=== PATIENT | female | born 1960 | race Caucasian/White ===

== ENCOUNTER 2019-09-30 09:17 | Outpatient (CLI) | payer BC, SELFPAY ==
--- NOTE | ~2019-09-30 | MM_ITS ---
EXAMINATION: MM screening [facility] BI w gen HISTORY: Screening mammogram TECHNIQUE: Craniocaudal and mediolateral oblique 3-D tomosynthesis images were obtained and synthetic 2-D images were generated. CAD analysis was submitted and interpreted. COMPARISON: 09/17/2018, 09/07/2017, 09/04/2016 BREAST PARENCHYMAL COMPOSITION: The breasts are almost entirely fatty. FINDINGS: A chronic asymmetry is present in the middle third of the upper left breast on the mediolat eral oblique view. There is no evidence of suspicious mass, calcification, or architectural distortio n to suggest malignancy in either breast. There has been no suspicious interval change. IMPRESSION: 1. No mammographic evidence of malignancy. 2. Recommend routine screening mammography in one year. BI-RADS Category 2: Benign finding(s). Reviewed, dictated and finalized at location A. [facility] OFFICIAL
== END 2019-09-30 09:18 | disposition home or self-care (01) ==
LOC: ANHIMG 09:19
PROVIDERS: PCP Family Medicine; Visit Provider Student in an Organized Health Care Education/Training Program
DX: Z12.31 Encounter for screening mammogram for malignant neoplasm of breast (principal)
CPT/HCPCS: 77063; 77067

== ENCOUNTER 2020-02-13 11:33 | Outpatient (CLI) | payer BC, SELFPAY ==
--- NOTE | ~2020-02-13 | MR_ITS ---
EXAMINATION: MR elbow RT wo con DATE: 02/13/2020 12:53 INDICATION: Nontraumatic right elbow pain TECHNIQUE: Magnetic resonance imaging (MRI) of the right elbow was performed without intravenous cont rast. Sequences included coronal, axial, and sagittal PD-weighted FS FSE and coronal, axial, and sagi ttal PD-weighted FSE. COMPARISON: None FINDINGS: Osseous/other: Normal alignment. Normal marrow signal with no marrow edema, fracture, osteochondral lesion or abnor mal marrow replacing process. Tendons: Triceps, biceps brachii and brachialis tendons are normal. Common flexor tendon wad is normal. Mild tendinopathy without discrete tear at the lateral epicondylar origin of the common extensor tendon wa d. Ligaments: Small partial-thickness tear at the lateral epicondylar insertion of the radial collateral ligament. The lateral ulnar collateral ligament annular ligament remain intact. Medial collateral ligament comp milan is normal. Cubital tunnel: Cubital tunnel is unremarkable with normal signal and caliber of the ulnar nerve. Fluid: Physiologic amount of fluid the elbow joint. IMPRESSION: 1. Small partial tear at the lateral epicondylar insertion of the radial collateral ligament. 2. Mild tendinopathy without discrete tear at the lateral epicondylar origin of the common extensor t endon wad. Reviewed, dictated and finalized at location A. IMPRESSION: 1. Small partial tear at the lateral epicondylar insertion of the radial collat eral ligament. 2. Mild tendinopathy without discrete tear at the lateral epicondylar origin of the common extensor tendon wad.
== END 2020-02-13 11:34 | disposition home or self-care (01) ==
PROVIDERS: PCP Family Medicine; Visit Provider Nurse Practitioner Family
DX: M25.521 Pain in right elbow (principal); S53.431A Radial collateral ligament sprain of right elbow, initial encounter; M65.821 Other synovitis and tenosynovitis, right upper arm
CPT/HCPCS: 73221

== ENCOUNTER 2020-10-27 09:50 | Outpatient (CLI) | payer BC, SELFPAY ==
--- NOTE | ~2020-10-27 | DEXA_ITS ---
Bone Density Report Name: Nelly Gleason Age: 60 Sex: Female Ethnicity: White Date of : 1960 Indication: postmenopausal; parental hip fracture; hysterectomy; Referring Provider: Alis Coleman Study: Bone densitometry was performed. Exam Date: October 27, 2020 Accession number: [id number] Bone Density: Region BMD T-score Z-score Classification AP Spine (L1-L4) 1.295 2.3 3.8 Normal Femoral Neck (Left) 1.037 1.7 3.1 Normal Total Hip (Left) 1.230 2.4 3.4 Normal Total Hip Bilateral Avg 1.235 2.4 3.5 Normal Femoral Neck (Right) 1.030 1.6 3.0 Normal Total Hip (Right) 1.238 2.4 3.5 Normal World Health Organization criteria for BMD impression classify patients as: Normal (T-score at or above -1.0), Osteopenia (T-score between -1.0 and -2.5), or Osteoporosis (T-score at or below -2.5). 10-year Fracture Risk: FRAX not reported because: All T-scores for Spine Total, Hip Total, Femoral Neck at or above -1.0 Previous Exams: Region Exam Age BMD T-score BMD Change BMD Change Date g/cm2 vs Baseline vs Previous AP Spine(L1-L4) 10/27/2020 60 1.295 2.3 0.029(2.3%)# 0.038(3.0%)* 09/17/2018 58 1.257 1.9 -0.009(-0.7%)# 0.013(1.0%) 07/30/2014 54 1.244 1.8 -0.022(-1.7%)# -0.107(-7.9%)# 02/09/2011 50 1.351 2.8 0.085(6.7%)* 0.052(4.0%)* 02/07/2008 47 1.299 2.3 0.033(2.6%)* 0.033(2.6%)* 07/14/2004 44 1.266 2.0 Total Hip(Left) 10/27/2020 60 1.230 2.4 0.026(2.2%)# -0.011(-0.9%) 09/17/2018 58 1.241 2.5 0.037(3.1%)# 0.037(3.0%)* 07/30/2014 54 1.204 2.1 0.000(0.0%)# -0.085(-6.6%)# 02/09/2011 50 1.289 2.8 0.085(7.1%)* 0.058(4.7%)* 02/07/2008 47 1.231 2.4 0.027(2.2%) 0.027(2.2%) 07/14/2004 44 1.204 2.1 Total Hip(Right) 10/27/2020 60 1.238 2.4 0.037(3.0%)# -0.007(-0.6%) 09/17/2018 58 1.246 2.5 0.044(3.7%)# 0.035(2.9%)* 07/30/2014 54 1.211 2.2 0.009(0.8%)# -0.033(-2.7%)# 02/09/2011 50 1.244 2.5 0.042(3.5%)* 0.004(0.3%) 02/07/2008 47 1.240 2.4 0.038(3.2%)* 0.038(3.2%)* 07/14/2004 44 1.202 2.1 *Denotes significance at 95% confidence level, LSC for AP Spine = 0.022 g/cm2, LSC for Total Hip = 0.027 g/cm2 Clinical Information Provided by Patient: Parent has had a hip fracture Has used the following medications: HRT (i.e. estrogen/hormone therapy), Vitamin D, Calcium Has the following medical conditions: Hysterectomy Patient maximum height was 65 Me
--- NOTE | ~2020-10-27 | MM_ITS ---
EXAMINATION: MM screening [facility] BI w gen HISTORY: Screening TECHNIQUE: Craniocaudal and mediolateral oblique 3-D tomosynthesis images were obtained and synthetic 2-D images were generated. CAD analysis was submitted and interpreted. COMPARISON: Comparison to multiple prior studies sequentially, with oldest reviewed study dated 08/23. BREAST PARENCHYMAL COMPOSITION: There are scattered areas of fibroglandular density. FINDINGS: There is no evidence of suspicious mass, calcification, or architectural distortion to sugg est malignancy in either breast. There has been no suspicious interval change. IMPRESSION: 1. No mammographic evidence of malignancy. 2. Recommend routine screening mammography in one year. BI-RADS Category 1: Negative Reviewed, dictated and finalized at location A.
== END 2020-10-27 09:51 | disposition home or self-care (01) ==
LOC: ANHIMG 09:52
PROVIDERS: PCP Family Medicine; Visit Provider Student in an Organized Health Care Education/Training Program
DX: N95.8 Other specified menopausal and perimenopausal disorders (principal); Z12.31 Encounter for screening mammogram for malignant neoplasm of breast
CPT/HCPCS: 77063; 77067; 77080

== ENCOUNTER 2021-11-21 08:41 | Outpatient (CLI) | payer BC, SELFPAY ==
--- NOTE | ~2021-11-21 | MM_ITS ---
EXAMINATION: MM screening [facility] BI w gen HISTORY: Screening mammogram TECHNIQUE: Craniocaudal and mediolateral oblique 3-D tomosynthesis images were obtained and synthetic 2-D images were generated. CAD analysis was submitted and interpreted. COMPARISON: 10/27/2020, , bilateral screening mammogram examinations BREAST PARENCHYMAL COMPOSITION: There are scattered areas of fibroglandular density. FINDINGS: There is no evidence of suspicious mass, calcification, or architectural distortion to sugg est malignancy in either breast. There has been no suspicious interval change. IMPRESSION: 1. No mammographic evidence of malignancy. 2. Recommend routine screening mammography in one year. BI-RADS Category 1: Negative Reviewed, dictated and finalized at location A.
== END 2021-11-21 08:42 | disposition home or self-care (01) ==
LOC: ANHIMG 08:43
PROVIDERS: PCP Family Medicine; Visit Provider Student in an Organized Health Care Education/Training Program
DX: Z12.31 Encounter for screening mammogram for malignant neoplasm of breast (principal)
CPT/HCPCS: 77063; 77067

== ENCOUNTER 2022-03-29 07:37 | Outpatient (CLI) | payer BC, SELFPAY ==
--- NOTE | ~2022-03-29 | MR_ITS ---
EXAMINATION: MR lumbar spine wo con DATE: 03/29/2022 08:22 INDICATION: Low back pain. TECHNIQUE: Magnetic resonance imaging (MRI) of the lumbar spine was performed without intravenous con trast. Sequences included sagittal T2-weighted FSE, sagittal T2-weighted FS FSE, sagittal T1-weighted FSE, and axial T2-weighted FSE. COMPARISON: None FINDINGS: Alignment is normal. Vertebral body heights are normal. T1 hyperintense hemangiomas at L5 and T11.Mar row signal is otherwise normal. Mild disc desiccation and mild disc height loss at L2-L3 through L5-S 1. The conus medullaris terminates at T12-L1. There is normal signal in the caudal spinal cord. Parav ertebral soft tissues are unremarkable. The following disc levels are specifically discussed: T12-L1: The disc does not extend beyond the endplate margin. There is no appreciable facet joint oste oarthritis. There is no neural foraminal stenosis. There is no central canal stenosis. L1-L2: Negligible disc bulge. There is mild to moderate bilateral facet joint osteoarthritis. There i s no neural foraminal stenosis. There is no central canal stenosis. L2-L3: Disc is mildly bulging with annular fissure. There is moderate bilateral facet joint osteoarth ritis. There is mild bilateral neural foraminal stenosis. There is mild central canal stenosis. L3-L4: Disc is bulging with annular fissure. There is moderate to severe bilateral facet joint osteoa rthritis. There is fluid the articular surface of the bilateral facet joints suggesting th e potential for up to 2 mm anterolisthesis of L3 on L4. There is mild bilateral neural foraminal sten osis. There is mild central canal stenosis. L4-L5: Disc is mildly bulging with annular fissure. There is moderate right and mild to moderate left facet joint osteoarthritis. There is mild bilateral neural foraminal stenosis. There is mild central canal stenosis. L5-S1: Disc is bulging with superimposed annular fissure and small central disc extrusion with disc m aterial extending up to 3 mm cephalad to the level of the inferior endplate of L5. With bilateral L5 pars interarticularis defects. There is moderate bilateral facet joint osteoarthritis. There is mild bilateral neural foraminal stenosis. There is no central canal stenosis. IMPRESSION: 1. Interval progression of mild lumbar spondylosis. 2. Bilateral L5 pars interarticularis defects without spondylolisthesis. 3. Fluid filling the bilateral the widened L3-L4 facet joints which suggests likely mobility with pot ential for up to 2 mm anterolisthesis at this level which could be further assessed with neutral, fle xion and extension lateral radiographs of the lumbar spine if clinically indicated. Reviewed, dictated and finalized at location A. IMPRESSION: 1. Interval progression of mild lumbar spondylosis. 2. Bilateral L5 pars interarticularis defects without spondylolisthesis. 3. Fluid filling the bilateral the widened L3-L4 facet joints which suggests li nat mobility with potential for up to 2 mm anterolisthesis at this level which could be further assessed with neutral, flexion and extension lateral radiogra phs of the lumbar spine if clinically indicated.
== END 2022-03-29 07:38 | disposition home or self-care (01) ==
PROVIDERS: PCP Family Medicine; Visit Provider Nurse Practitioner Family
DX: M47.817 Spondylosis without myelopathy or radiculopathy, lumbosacral region (principal); M48.07 Spinal stenosis, lumbosacral region
CPT/HCPCS: 72148

== ENCOUNTER 2022-12-04 09:55 | Outpatient (CLI) | payer BC, SELFPAY ==
--- NOTE | ~2022-12-04 | MM_ITS ---
EXAMINATION: MM screening [facility] BI w gen HISTORY: Screening mammogram TECHNIQUE: Craniocaudal and mediolateral oblique 3-D tomosynthesis images were obtained and synthetic 2-D images were generated. CAD analysis was submitted and interpreted. COMPARISON: November 21, 2021, October 27, 2020, September 30, 2019 bilateral screening mammogram examinati ons BREAST PARENCHYMAL COMPOSITION: There are scattered areas of fibroglandular density. FINDINGS: There is no evidence of suspicious mass, calcification, or architectural distortion to sugg est malignancy in either breast. There has been no suspicious interval change. IMPRESSION: 1. No mammographic evidence of malignancy. 2. Recommend routine screening mammography in one year. BI-RADS Category 1: Negative Reviewed, dictated and finalized at location A.
== END 2022-12-04 09:56 | disposition home or self-care (01) ==
LOC: ANHIMG 09:56
PROVIDERS: PCP Family Medicine; Visit Provider Student in an Organized Health Care Education/Training Program
DX: Z12.31 Encounter for screening mammogram for malignant neoplasm of breast (principal)
CPT/HCPCS: 77063; 77067

== ENCOUNTER 2023-02-19 10:06 | Outpatient (CLI) | payer BC, SELFPAY ==
--- NOTE | 2023-02-19 10:12 | ECHO_ITS ---
Patient Info Name: Nelly Sampson Age: 62 years : 1960 Gender: Female Ht: 65 in Wt: 160 lbs BSA: 1.84 m2 HR: 74 bpm BP: 173 / 83 mmHg Heart Rhythm: Sinus Rhythm Technical Quality: Good Exam Date: 02/19/2023 10:09 AM Exam Location: [facility] Patient Status: Outpatient Admit Date: 02/19/2023 Staff Ordering Physician: Anthony Harrison DO Mold Tooler: Gerald Banks RDCS Attending Provider: Anthony Harrison DO Referring Physician: Hunter LAUREN; Exam Type: CA echo doppler color flow Study Info Indications - Essential Hypertension Complete two-dimensional, color flow and Doppler transthoracic echocardiogram is performed. Summary 1. Complete two-dimensional, color flow and Doppler transthoracic echocardiogram is performed. 2. Left ventricular chamber dimension is normal. 3. Left ventricular systolic function is normal, estimated at 60-65%. 4. The left ventricular diastolic function is grade I diastolic dysfunction. 5. E/e' 8 is minimally elevated. 6. There is trace mitral valve regurgitation. 7. There is trace tricuspid valve regurgitation. 8. No pulmonary hypertension, estimated pulmonary arterial systolic pressure is 19 mmHg. Left Ventricle E/e' 8 is minimally elevated. Left ventricular chamber dimension is normal. Left ventricular systolic function is normal, estimated at 60-65%. The left ventricular diastolic function is grade I diastolic dysfunction. Right Ventricle Right ventricular systolic function is normal and with normal TAPSE 2.4 cm. Right ventricular chamber dimension is normal. Left Atria Left atrial chamber dimension is normal. Right Atria Right atrial chamber dimension is normal. Aortic Valve The aortic valve is trileaflet. There is no aortic valve stenosis. There is no aortic valve regurgitation. Pulmonic Valve There is no pulmonic regurgitation. Mitral Valve There is no mitral valve stenosis. There is trace mitral valve regurgitation. Tricuspid Valve There is trace tricuspid valve regurgitation. No pulmonary hypertension, estimated pulmonary arterial systolic pressure is 19 mmHg. Pericardium/Pleural There is no pericardial effusion. Inferior Vena Cava Normal inferior vena cava with >50% collapse upon inspiration consistent with normal right atrial pressure, 5 mmHg. Aorta The aortic root size at the sinus of Valsalva is normal. Left Ventricular Outflow Tract Name Value Normal LVOT 2D LVOT Diameter 1.8 cm LVOT Doppler LVOT Peak Velocity 92 cm/s LVOT Peak Gradient 3 mmHg LVOT Mean Gradient 2 mmHg LVOT VTI 19 cm LVOT VTI/AV VTI Ratio 0.5 LVOT Stroke Volume 47 ml Pulmonic Valve Name Value Normal RVOT Doppler RVOT Peak Gradient 2 mmHg PV Doppler
== END 2023-02-19 10:07 | disposition home or self-care (01) ==
LOC: CHSIMG 10:08
PROVIDERS: PCP Family Medicine; Visit Provider Internal Medicine Cardiovascular Disease
DX: I10 Essential (primary) hypertension (principal)
CPT/HCPCS: 93306

== ENCOUNTER → 2023-05-15 14:22 | Outpatient (CLI) | payer BC, SELFPAY ==
--- NOTE | ~2023-05-15 | XR_ITS ---
AP and oblique views of the bilateral SI joints CLINICAL HISTORY: Sacrococcygeal disorder FINDINGS: Bilateral SI joints and hip joints appear intact. No degenerative, sclerotic, or erosive ch eric identified. There is hardware centrally in the lower pelvis, possibly pessary device. Soft tissu es otherwise unremarkable. IMPRESSION: Unremarkable SI joints. Reviewed, dictated and finalized at location M. IMPRESSION: Unremarkable SI joints.
== END ==
PROVIDERS: PCP Orthopaedic Surgery; Visit Provider Nurse Practitioner Family
DX: M53.3 Sacrococcygeal disorders, not elsewhere classified (principal)
CPT/HCPCS: 72202

== ENCOUNTER 2023-08-21 15:48 | Outpatient (CLI) | payer BC, SELFPAY ==
--- NOTE | ~2023-08-21 | CT_ITS ---
EXAMINATION: CT abdomen pelvis wo con DATE: 08/21/2023 16:10 INDICATION: Unspecified abd Pain TECHNIQUE: Computed tomography (CT) of the abdomen and pelvis was performed without intravenous contr ast. Automated exposure control and iterative reconstruction technique were employed. The dose-length product was 547.77 mGy-cm. COMPARISON: [facility]PA 12/14/2011. FINDINGS: Lower thorax: Unremarkable Liver: Normal. Biliary/Gallbladder: Gallbladder is absent. No bile duct dilation. Pancreas: No mass or duct dilation. Spleen: Normal. Adrenals: Stable 8 mm left adrenal nodule, likely adenoma. Kidneys: No suspicious mass, obstructing stone, or hydronephrosis. Linear calcification in the left l ower pole. GI tract: No small or large bowel dilation. Appendix not confidently visualized. Large volume of colo meghna stool. Mesentery/Peritoneum: No ascites, mass, or free air. Retroperitoneum: No mass. Atherosclerotic abdominal aortic and/or arterial calcifications. Pelvis: Absent uterus. Normal urinary bladder. Pessary. Soft Tissues: Soft tissues and body wall unremarkable. Bones: No acute osseous finding. IMPRESSION: No acute abdominopelvic process detected. No CT evidence of obstructive uropathy. Large volume of colonic stool which may reflect constipation in the appropriate clinical context. Reviewed, dictated and finalized at location K. ISH PROFESSOR IMPRESSION: No acute abdominopelvic process detected. No CT evidence of obstructive uropath y. Large volume of colonic stool which may reflect constipation in the appropriate clinical context.
== END 2023-08-21 15:49 | disposition home or self-care (01) ==
PROVIDERS: PCP Family Medicine; Visit Provider Physician Assistant
DX: R10.9 Unspecified abdominal pain (principal)
CPT/HCPCS: 74176

== ENCOUNTER 2023-12-01 07:27 | Outpatient (CLI) | payer BC, SELFPAY ==
--- NOTE | ~2023-12-01 | MR_ITS ---
EXAMINATION: MR knee RT wo con DATE: 12/01/2023 08:08 INDICATION: r/o medial meniscus tear. medial right knee pain x3yrs TECHNIQUE: Magnetic resonance imaging (MRI) of the right knee was performed without intravenous contr ast. Sequences included axial PD-weighted FS FSE, coronal PD-weighted FSE and PD-weighted FS FSE, sag ittal PD-weighted FSE, and sagittal T2-weighted FS FSE. COMPARISON: 05/03/2023, images only. FINDINGS: Medial compartment: Severe diffuse cartilage thinning. Mild osteophytosis. Meniscal degeneration. Apical tear of the post erior horn. Apical and oblique tears of the body with extension of a small meniscal flap into the inf eromedial recess. Mild meniscal extrusion. Lateral compartment: Mild meniscal degeneration. Moderate diffuse cartilage thinning. Mild osteophytosis. Patellofemoral compartment: Mild diffuse cartilage thinning. Mild osteophytosis. Retinacula intact. Ligaments and tendons: The ACL, PCL, MCL, and LCL are intact. Remaining flexor and extensor tendons are intact. Fluid: Small volume joint fluid. Fluid in the deep infrapatellar bursa and deep to the pes anserine tendons. Osseous/other: No suspicious focal or diffuse marrow signal. IMPRESSION: Tears of the body and posterior horn, medial meniscus, with mild meniscal extrusion and a small flap of meniscal tissue in the inferomedial joint recess. 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 Mild deep infrapatellar bursitis. Mild pes anserine bursitis. Small joint effusion. Reviewed, dictated and finalized at location K. IMPRESSION: Tears of the body and posterior horn, medial meniscus, with mild meniscal extru cristian and a small flap of meniscal tissue in the inferomedial joint recess. 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 Mild deep infrapatellar bursitis. Mild pes anserine bursitis. Small joint effusion.
== END 2023-12-01 07:28 ==
LOC: MICIMG 07:29
PROVIDERS: PCP Nurse Practitioner Family; Visit Provider Nurse Practitioner Family
DX: M17.11 Unilateral primary osteoarthritis, right knee (principal); M25.461 Effusion, right knee; M70.41 Prepatellar bursitis, right knee
CPT/HCPCS: 73721

== ENCOUNTER 2024-01-29 09:26 | Outpatient (CLI) | payer BC, SELFPAY ==
--- NOTE | ~2024-01-29 | MM_ITS ---
EXAMINATION: MM screening [facility] BI w gen HISTORY: Screening TECHNIQUE: Craniocaudal and mediolateral oblique 3-D tomosynthesis images were obtained and synthetic 2-D images were generated. CAD analysis was submitted and interpreted. COMPARISON: Comparison to multiple prior studies sequentially, with oldest reviewed study dated 09/07. BREAST PARENCHYMAL COMPOSITION: Not dense: There are scattered areas of fibroglandular density. FINDINGS: There is no evidence of suspicious mass, calcification, or architectural distortion to sugg est malignancy in either breast. There has been no suspicious interval change. IMPRESSION: 1. No mammographic evidence of malignancy. 2. Recommend routine screening mammography in one year. BI-RADS Category 1: Negative Reviewed, dictated and finalized at location B.
== END 2024-01-29 09:27 | disposition home or self-care (01) ==
LOC: ANHIMG 09:28
PROVIDERS: PCP Family Medicine; Visit Provider Registered Nurse
DX: Z12.31 Encounter for screening mammogram for malignant neoplasm of breast (principal); Z78.0 Asymptomatic menopausal state
CPT/HCPCS: 77063; 77067

== ENCOUNTER 2024-04-01 09:07 | Outpatient (CLI) | payer BC, SELFPAY ==
--- NOTE | ~2024-04-01 | DEXA_ITS ---
Bone Density Report Name: ELICEO WESTFALL Age: 63 Sex: Female Ethnicity: White Date of : 1960 Indication: postmenopausal; screening for osteoporosis; parental hip fracture; cancer; hysterectomy; Referring Provider: SEBASTIÁN, CLAIRE Jean-Baptiste Study: Bone densitometry was performed. Exam Date: April 01, 2024 Accession number: [id number] Bone Density: Region BMD T-score Z-score Classification AP Spine(L1-L4) 1.316 2.4 4.3 Normal Femoral Neck (Left) 1.029 1.6 3.2 Normal Total Hip (Left) 1.235 2.4 3.7 Normal Femoral Neck (Right) 1.060 1.9 3.5 Normal Total Hip (Right) 1.275 2.7 4.0 Normal Total Hip Mean 1.255 2.6 3.9 Normal World Health Organization criteria for BMD impression classify patients as: Normal (T-score at or above -1.0), Osteopenia (T-score between -1.0 and -2.5), or Osteoporosis (T-score at or below -2.5). 10-year Fracture Risk: FRAX not reported because: All T-scores for Spine Total, Hip Total, Femoral Neck at or above -1.0 Previous Exams: Region Exam Age BMD T-score BMD Change BMD Change Date g/cm2 vs Baseline vs Previous AP Spine (L1-L4) 04/01/2024 63 1.316 2.4 0.060 (4.7%)* 0.021 (1.7%) 10/27/2020 60 1.295 2.3 0.038 (3.0%)* 0.038 (3.0%)* 09/17/2018 58 1.257 1.9 Total Hip(Left) 04/01/2024 63 1.235 2.4 -0.006 (-0.5%) 0.005 (0.4%) 10/27/2020 60 1.230 2.4 -0.011 (-0.9%) -0.011 (-0.9%) 09/17/2018 58 1.241 2.5 Total Hip(Right) 04/01/2024 63 1.275 2.7 0.029 (2.3%)* 0.036 (2.9%)* 10/27/2020 60 1.238 2.4 -0.007 (-0.6%) -0.007 (-0.6%) 09/17/2018 58 1.246 2.5 *Denotes significance at 95% confidence level, LSC for AP Spine = 0.022 g/cm2, LSC for Total Hip = 0.027 g/cm2 Clinical Information Provided by Patient: Parent has had a hip fracture Has used the following medications: Vitamin D, Calcium Has the following medical conditions: Cancer, Hysterectomy Patient maximum height was 65 Menopause Age: 41 No regular weight bearing exercise Drinks caffeinated beverages Onset of menses at age 14 Number of children 0 Impression: The patient has normal bone mass. The patient has risk factors, including: parental hip fracture. No significant bone loss was observed. Discussion: LOW RISK OF FRACTURE; BONE DENSITY IS WELL ABOVE THE MINIMUM DESIRABLE LEVEL AND ABOVE AVERAGE FOR AGE AND SEX AT ALL SKELETAL SITES TESTED. This person's bone density is above exp
== END 2024-04-01 09:08 | disposition home or self-care (01) ==
LOC: ANHIMG 09:08
PROVIDERS: PCP Family Medicine; Visit Provider Registered Nurse
DX: Z78.0 Asymptomatic menopausal state (principal)
CPT/HCPCS: 77080

== ENCOUNTER 2024-08-25 11:46 | Outpatient (CLI) | payer BC, SELFPAY ==
--- NOTE | ~2024-08-25 | XR_ITS ---
Clinical Indication: Cough PA and lateral views of the chest: Comparison: 08/01/2012 Findings: The lungs are clear, without evidence of focal consolidation or pleural effusion. Cardiome diastinal silhouette is within normal limits. Bones and soft tissues are unremarkable. Impression: Normal chest. Reviewed, dictated and finalized at [facility]. ANIST Impression: Normal chest.
== END 2024-08-25 11:47 | disposition home or self-care (01) ==
PROVIDERS: PCP Family Medicine; Visit Provider Student in an Organized Health Care Education/Training Program
DX: R05.9 Cough, unspecified (principal)
CPT/HCPCS: 71046

== ENCOUNTER 2025-02-05 09:35 | Outpatient (CLI) | payer BC, SELFPAY ==
--- NOTE | ~2025-02-05 | MM_ITS ---
EXAMINATION: MM screening [facility] BI w gen HISTORY: Screening mammogram TECHNIQUE: Craniocaudal and mediolateral oblique 3-D tomosynthesis images were obtained and synthetic 2-D images were generated. CAD analysis was submitted and interpreted. COMPARISON: 01/29/2024, 12/04/2022, 11/21/2021, 10/27/2020 BREAST PARENCHYMAL COMPOSITION:Not Dense. There are scattered areas of fibroglandular density. FINDINGS: No suspicious mass, calcification, or architectural distortion are identified in either holly ast to suggest malignancy. There has been no suspicious interval change. IMPRESSION: No mammographic evidence of malignancy. Recommend routine screening mammography in one year. BI-RADS Category 1: Negative Reviewed, dictated and finalized at location .
== END 2025-02-05 09:36 | disposition home or self-care (01) ==
LOC: ANHIMG 09:37
PROVIDERS: PCP Family Medicine; Visit Provider Nurse Practitioner Obstetrics & Gynecology
DX: Z12.31 Encounter for screening mammogram for malignant neoplasm of breast (principal)
CPT/HCPCS: 77063; 77067